=== PATIENT | female | born 1990 | race Caucasian/White ===

== ENCOUNTER 2023-11-24 10:19 | Emergency (ER) | payer BC ==
[2023-11-24 11:05] LABS: Bilirubin Negative (Negative); Blood, Urine Negative (Negative); Clarity Clear (Clear); Glucose, Urine (Dipstick) Negative (Negative); Ketone, Urine Negative (Negative); Leukocyte Trace (Negative); Nitrite Negative (Negative); Protein, Urine (Dipstick) Negative (Neg-Trace); pH, Urine 6.5 (5.0-9.0)
[2023-11-24 11:07] LABS: Eosinophils 2 % (0-10); Hematocrit 38.6 % (36.0-47.0); Hemoglobin 12.8 g/dL (12.0-16.0); Lymphocytes 43 % (21-51); MDiff Complete? YES; Mean Corpuscular HGB CONC 33.2 g/dL (32.0-36.0); Mean Corpuscular Hemoglobin 31.4 pg (27.0-31.0); Mean Corpuscular Volume 94.6 fl (78.0-98.0); Mean Platelet Volume 8.6 fL (7.4-10.4); Monocytes 5 % (0-10); Neutrophil 48 % (42-75); Platelet Count 189 10x3/uL (130-400); RBC Distribution Width 10.5 % (11.5-14.5); Red Blood Cell (RBC) Count 4.08 mill/uL (4.20-5.40); White Blood Cell (WBC) Count 3.5 10x3/uL (4.8-10.8)
[2023-11-24 11:12] LABS: Anion Gap 12 mmol/L (10-20); BUN (Urea Nitrogen) 12 mg/dL (7.0-18.7); Calc. Creatinine Clearance 0 mL/min (70-130); Carbon Dioxide 25 mmol/L (22-29); Chloride 104 mmol/L (98-107); Estimated GFR 103; Glucose 112 mg/dL (70-105); Potassium 4.2 mmol/L (3.5-5.1); Sodium 137 mmol/L (136-145)
[2023-11-24 11:14] LABS: Bacteria/HPF None Seen HPF (None Seen); CAUTI Indications for Culture Pelvic or flank pain; RBC/HPF None Seen HPF (0-3); Squamous Epithelial None Seen HPF (0-3); WBC/HPF 0-3 HPF (0-3)
[2023-11-24 11:15] LABS: Urine Culture Reflex No No
[2023-11-24 23:19] LABS: Chlamydia by PCR, EndoCx Swab Not Detected (NotDetected); GC by PCR, EndoCx Swab Not Detected (NotDetected)
== END 2023-11-24 12:08 | disposition home or self-care (01) ==
LOC: BURERS 10:19
DX: N89.8 Other specified noninflammatory disorders of vagina (principal)
CPT/HCPCS: 36415; 80048; 81001; 85025; 87480; 87491; 87510; 87591; 87660; 99284